=== PATIENT | male | born 1985 | race Caucasian/White ===

== ENCOUNTER → 2017-03-02 | Outpatient (CLI) | payer SELFPAY ==
--- NOTE | 2017-03-02 10:24 | CT ---
CORONARY CALCIUM SCORE CLINICAL INDICATION: Screening. COMPARISON: None PROCEDURE: Gated images of the coronary arteries. Coronary artery calcium scoring was performed. FINDINGS: Coronary calcium scoring - 20 LM: 3 LAD: 4 LCX: 1 RCA: 12 IMPRESSION: 1. Calcium score of 20. This places the patient at approximately the 75th-90th percentile for males of equivalent age. Definite, at least mild atherosclerotic plaque. Mild or minimal coronary narrowi ngs are likely. Reported By:
== END ==
LOC: RAD 08:24
PROVIDERS: ATTEND Internal Medicine Cardiovascular Disease
DX: Z13.6 Encounter for screening for cardiovascular disorders (principal)